=== PATIENT | female | born 1945 | race Two or more races ===

== ENCOUNTER 2019-04-24 14:45 | Outpatient (CLI) | payer OTHER ==
[2019-04-27] MEDS ORDERED: SYNTHROID75 MCG (09:58)
== END 2019-04-24 16:50 | disposition home or self-care (01) ==
LOC: RAD 14:45
DX: R10.84 Generalized abdominal pain (principal); I10 Essential (primary) hypertension

== ENCOUNTER 2019-04-30 07:03 | Day surgery (SDC) | payer OTHER ==
[~2019-04-30 07:03] MED LIST: SYNTHROID75 MCG
[2019-04-30] MEDS ORDERED: ZOFRAN4 MG PO (11:03)
[2019-04-30] MEDS ORDERED: MIRALAX17 GM PO (11:03)
[2019-04-30] MEDS ORDERED: ULTRAM50 MG PO (11:03)
[2019-04-30] MEDS ORDERED: TYLENOL ARTHRI650 MG PO (11:03)
== END 2019-04-30 14:20 | disposition home or self-care (01) ==
LOC: CIR.AMB 07:03
DX: K80.10 Calculus of gallbladder with chronic cholecystitis without obstruction (principal)